=== PATIENT | female | born 1990 | race Caucasian/White ===

== ENCOUNTER 2021-07-20 11:22 | Emergency (ER) | payer OTHER, BC ==
[~2021-07-20] VITALS: Ht 175.3 cm; Wt 63.5 kg
--- NOTE | 2021-07-20 12:15 | NUR ---
Received pt at 1210 from main ED. Pt independently ambulated to bed OF bed 20. Pt is calm and cooperative with admit process. Personal belongings list completed, pt changed into green unit scrubs.
[2021-07-20 12:47] LABS: BASOPHILS # (AUTO) 0.1 X10'3 (0-0.2); BASOPHILS % (AUTO) 1.6 % (0-1); EOSINOPHILS % (AUTO) 0.4 % (0-6); HEMATOCRIT 41.3 % (35.0-45.0); HEMOGLOBIN 14.3 g/dl (12.0-16.0); LYMPHOCYTES # (AUTO) 0.6 X10'3 (1.1-4.8); LYMPHOCYTES % (AUTO) 14.1 % (21-51); MEAN CORPUSCULAR HEMOGLOBIN 30.6 PG (27.0-31.0); MEAN CORPUSCULAR HGB CONC 34.6 g/dL (33.0-36.5); MEAN CORPUSCULAR VOLUME 88.2 FL (78-98); MEAN PLATELET VOLUME 9.6 FL (7.4-10.4); MONOCYTES # (AUTO) 0.7 X10'3 (0-0.9); MONOCYTES % (AUTO) 17.1 % (2-12); NEUTROPHILS # (AUTO) 2.8 X10'3 (1.8-7.7); NEUTROPHILS % (AUTO) 66.8 % (42-75); PLATELET COUNT 156 X10'3 (140-440); RED BLOOD COUNT 4.68 X10'6 (4.20-5.60); RED CELL DISTRIBUTION WIDTH 13.1 % (11.5-14.5); WHITE BLOOD COUNT 4.1 X10'3 (4.5-11.0)
[2021-07-20 12:53] LABS: ALANINE AMINOTRANSFERASE 22 U/L (12-78); ALBUMIN 4.5 G/DL (3.4-5.0); ALBUMIN/GLOBULIN RATIO 1.3 (1.1-1.5); ALKALINE PHOSPHATASE 65 IU/L (46-116); ANION GAP 11 (8-16); ASPARTATE AMINO TRANSFERASE 25 U/L (10-37); BILIRUBIN,TOTAL 0.3 MG/DL (0.1-1.0); BLOOD UREA NITROGEN 10 MG/DL (7-18); CALCIUM 9.1 MG/DL (8.5-10.1); CHLORIDE 105 MMOL/L (99-107); CREATININE 0.83 MG/DL (0.40-0.90); GLUCOSE 100 MG/DL (70-104); POTASSIUM 3.7 MMOL/L (3.5-5.1); SODIUM 141 MMOL/L (135-145); TOTAL CARBON DIOXIDE 25.3 MMOL/L (24-32); TOTAL PROTEIN 7.9 G/DL (6.4-8.2); eGFR 80 ML/MIN
[2021-07-20 13:03] LABS: ETHANOL < 0.010 GM/DL (0.0-0.010)
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
--- NOTE | 2021-07-20 13:41 | NUR ---
Pt completed Covid swab and U/A - sent to lab.
[2021-07-20 13:52] LABS: TOTAL CELLS COUNTED 100
[2021-07-20 13:53] LABS: URINE HCG NEGATIVE (NEG)
[2021-07-20 13:53] LABS: PLATELET ESTIMATE NORMAL
[2021-07-20 13:59] LABS: URINE AMPHETAMINE SCREEN NEGATIVE (Neg); URINE BARBITUATE SCREEN NEGATIVE (Neg); URINE BENZODIAZEPINES SCREEN POSITIVE (Neg); URINE CANNABINOID SCREEN POSITIVE (Neg); URINE COCAINE SCREEN NEGATIVE (Neg); URINE METHADONE SCREEN NEGATIVE (Neg); URINE OPIATE SCREEN NEGATIVE (Neg); URINE PHENCYCLIDINE SCREEN NEGATIVE (Neg)
--- NOTE | 2021-07-20 14:01 | NUR ---
RACHAEL MORELAND CELL NUMBER [phone].
--- NOTE | 2021-07-20 14:10 | NUR ---
RECEIVED CRITICAL VALUE LAB - + COVID. NOTIFIED ESPERANZA MADDEN. Pt was given an N95 mask. Addendum: 07/20/21 at 1445 by AYAAN Pt reports feeling tired "like I'm withdrawing." Pt stopped her Vraylar and Lexapro.
[2021-07-20 14:11] LABS: CLARITY,URINE SLIGHTLY CLOUDY (Clear); COLOR,URINE YELLOW (Yellow); GLUCOSE, URINE NEGATIVE (Neg); KETONES,URINE NEGATIVE (Neg); NITRITES, URINE NEGATIVE (Neg); OCCULT BLOOD,URINE SMALL (Neg); PROTEIN,URINE NEGATIVE (Neg); UA COLLECTION TYPE CLN CATCH MIDSTREAM
[2021-07-20 14:12] LABS: LEUKOCYTE ESTERASE ,URINE NEGATIVE (Neg); UROBILINOGEN,URINE 0.2 E.U/dL (0.2-1.0)
[2021-07-20 14:21] LABS: MUCUS STRANDS MODERATE /LPF (Neg); SQUAMOUS EPITHELIAL CELL,UR MODERATE /LPF (FEW)
[2021-07-20 14:22] LABS: BACTERIA,URINE 1+ /HPF (Neg); RBC,URINE 0-2 /HPF (0-2); WBC,URINE 0-4 /HPF (0-4)
[2021-07-20] MEDS ORDERED: CYCL-1 PO (14:44)
[2021-07-20] MEDS ORDERED: DOCU100C40 PO (14:44)
[2021-07-20] MEDS ORDERED: ALPR-624 PO (14:44)
[2021-07-20] MEDS ORDERED: TRAZ-256 PO (14:44)
[2021-07-20] MEDS ORDERED: HYOS-26 SL (14:44)
[2021-07-20] MEDS ORDERED: ALPRAZolam 0.5mg tablet PO PRN (15:30)
[2021-07-20] MEDS ORDERED: cyclobenzaprine 10mg tablet PO PRN (15:30)
--- NOTE | 2021-07-20 16:15 | NUR ---
Pt lying in bed talking to her . Pt stating is going to the movies. aware of pt's lab results. Pt calm.
--- NOTE | 2021-07-20 16:36 | NUR ---
PACKET FAXED TO [facility]
[2021-07-20] MEDS ORDERED: acetaminophen 325mg tablet PO ONE (19:45)
[2021-07-20] MEDS: traZODone 50mg tablet PO SCH ×2 (20:09→22:42)
[2021-07-20] MEDS: docusate sod 100mg capsule PO SCH (20:09)
[2021-07-20] MEDS ORDERED: traZODone 50mg tablet PO SCH (21:00)
[2021-07-21] MEDS: docusate sod 100mg capsule PO SCH (08:00)
[2021-07-21] MEDS ORDERED: hyoscyamine 0.125mg TAB.SUBL SL SCH (08:00)
--- NOTE | 2021-07-21 08:33 | NUR ---
pt. denied colace despite not having bowel movement in 4 days. pt educated on constipation and ways to modify activty/diet while staying at hospital
--- NOTE | 2021-07-21 09:45 | NUR ---
Call to Kirk at this time, states he is on his way to pick her up.
[2021-07-21 10:22] VITALS: BP 126/81
== END 2021-07-21 10:25 | disposition home or self-care (01) ==
LOC: ER 11:23
DX: U07.1 COVID-19 (principal); R45.851 Suicidal ideations; Z88.8 Allergy status to other drugs, medicaments and biological substances; Z79.899 Other long term (current) drug therapy
CPT/HCPCS: 36415; 80053; 80305; 80320; 81001; 81025; 84443; 85007; 85025; 87635; 99285; C9803